=== PATIENT | female | born 1945 | race Caucasian/White ===

== ENCOUNTER → 2020-12-24 | Outpatient (CLI) | payer MEDICARE, OTHER ==
[~2020-12-24] MED LIST: DOXEPIN HCL10 MG PO; HYDROCODON-ACE1 EAC4 PO; IMITREX50 MG PO; K-DUR TAB 20 M20 MEQ PO; K-TAB ER20 MEQ PO; KLONOPIN1 MG PO; PERCOCET 5-3251 EACH PO; PERCOCET 5/325 T1 EA PO; PROCTOZONE-HC30 GM PR; VITAMIN D21250 MCG PO; VOLTAREN100 GM TP
[2020-12-24 12:02] LABS: HEMOGLOBIN 13.2 gm/dl (12.3-15.3); RED BLOOD COUNT 4.03 M/UL (4.00-5.10); WHITE BLOOD COUNT 6.7 K/UL (4.5-11.0)
[2020-12-24 12:17] LABS: BUN/CREATININE RATIO 14 (0-10)
== END ==
LOC: CT 10:30
PROVIDERS: Family Medicine
DX: C50.911 Malignant neoplasm of unspecified site of right female breast (principal); N64.4 Mastodynia; E87.6 Hypokalemia; D64.9 Anemia, unspecified; R91.8 Other nonspecific abnormal finding of lung field
CPT/HCPCS: 36415; 71270; 80053; 82565; 82728; 83540; 83550; 83735; 84520; 85025; 85045; 86300; Q9967

== ENCOUNTER → 2021-06-09 | Outpatient (CLI) | payer MEDICARE, OTHER ==
[2021-06-09 14:01] LABS: HEMOGLOBIN 12.8 gm/dl (12.3-15.3); RED BLOOD COUNT 3.96 M/UL (4.00-5.10); WHITE BLOOD COUNT 8.3 K/UL (4.5-11.0)
[2021-06-09 14:31] LABS: BUN/CREATININE RATIO 11 (0-10)
== END ==
LOC: LAB 13:31
PROVIDERS: Nurse Practitioner Family
DX: E55.9 Vitamin D deficiency, unspecified (principal); E53.8 Deficiency of other specified B group vitamins; M13.0 Polyarthritis, unspecified; D64.9 Anemia, unspecified; F41.9 Anxiety disorder, unspecified; I25.10 Atherosclerotic heart disease of native coronary artery without angina pectoris; R30.0 Dysuria; R53.83 Other fatigue; I10 Essential (primary) hypertension; M25.50 Pain in unspecified joint; M79.10 Myalgia, unspecified site
CPT/HCPCS: 36415; 80053; 82270; 82607; 83540; 83550; 84439; 84443; 85025